=== PATIENT | female | born 1965 | race Caucasian/White ===

== ENCOUNTER 2019-08-03 15:01 | Emergency (ER) | payer OTHER, MEDICARE ==
[~2019-08-03] VITALS: Ht 152.4 cm; Wt 74.1 kg
[2019-08-03 15:03] VITALS: BP 123/60; Ht 152.4 cm; Wt 74.1 kg
[2019-08-03] MEDS ORDERED: TORADOL10 MG PO (15:38)
== END 2019-08-03 16:05 | disposition home or self-care (01) ==
LOC: D.ER 15:01
DX: S49.92XA Unspecified injury of left shoulder and upper arm, initial encounter (principal); W19.XXXA Unspecified fall, initial encounter; Y92.89 Other specified places as the place of occurrence of the external cause; Y99.0 Civilian activity done for income or pay; E11.8 Type 2 diabetes mellitus with unspecified complications; I10 Essential (primary) hypertension; Z72.0 Tobacco use; I21.9 Acute myocardial infarction, unspecified; M19.90 Unspecified osteoarthritis, unspecified site